=== PATIENT | male | born 1995 ===

== ENCOUNTER 2020-06-17 05:42 | Day surgery (SDC) | payer OTHER ==
[2020-06-15 17:42] VITALS: BMI 26.9
[2020-06-17] MEDS ORDERED: PROMETHAZINE HCL 25 MG/1 ML VIAL IVPB PRN (13:34)
[2020-06-17] MEDS ORDERED: ONDANSETRON 4 MG/2 ML VIAL IVPUSH PRN (13:34)
[2020-06-17] MEDS ORDERED: LACTATED RINGERS SOLUTION 1,000 ML IV SCH (13:45)
[2020-06-17] MEDS ORDERED: MIDAZOLAM HCL 2 MG/2 ML SINGLE DOSE VIAL ONE (13:48)
[2020-06-17] MEDS ORDERED: PROPOFOL 20 ML ONE (13:48)
[2020-06-17] MEDS ORDERED: LIDOCAINE HCL/PF 2% SDV 5ML VIAL ONE (14:01)
[2020-06-17] MEDS ORDERED: ceFAZolin SODIUM 1 GM VIAL ONE (14:07)
[2020-06-17] MEDS ORDERED: ONDANSETRON 4 MG/2 ML VIAL ONE (14:07)
[2020-06-17] MEDS ORDERED: KETOROLAC TROMETHAMINE 30 MG/1 ML VIAL ONE (14:07)
[2020-06-17] MEDS ORDERED: DEXAMETHASONE SOD PHOSPHATE 4 MG/1 ML VIAL ONE (14:07)
[2020-06-17] MEDS ORDERED: BUPIVACAINE HCL/PF 0.25% (2.5MG/ML) 10 ML VIAL ONE (14:09)
[2020-06-17 17:13] VITALS: BP 128/73; PULSE 78; TEMP 97.4
== END 2020-06-17 18:15 | disposition home or self-care (01) ==
LOC: JASU-SURG 05:42
PROVIDERS: ATTEND Urology
PROC: 0VNSXZZ Release Penis, External Approach (ICD-10-PCS; principal; 2020-06-17 13:00)
PROC: 0VTTXZZ Resection of Prepuce, External Approach (ICD-10-PCS; 2020-06-17 13:00)
DX: N47.1 Phimosis (principal); N48.89 Other specified disorders of penis; Q55.8 Other specified congenital malformations of male genital organs
CPT/HCPCS: 88304-TC; 94760